=== PATIENT | female | born 1945 | race Caucasian/White ===

== ENCOUNTER 2016-12-20 15:18 | Emergency (ER) | payer MEDICARE, OTHER ==
[~2016-12-20] VITALS: Ht 160 cm; Wt 50.0 kg
[~2016-12-20 15:18] MED LIST: ASPI81 CHEW; ASPI81TA82 PO; DOCU100T9 PO; LACT20SO4 PO; PROT40TA G-TUBE; [UNRECOGNIZED DRUG - CODE] PEG
[2016-12-20 15:24] VITALS: BP 119/68; PULSE 80; RESP 18; TEMP 98.9; O2SAT 97
[2016-12-20 15:30] VITALS: BP 119/68; PULSE 83; RESP 18; O2SAT 96
[2016-12-20] MEDS ORDERED: MORP1SOL3 PO (15:36)
--- NOTE | 2016-12-20 15:38 | PD ---
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 Patient's states that it has been moldy for several days me be a little bit longer. The hospice nurse came to the home today saw it, and said he needed to be replaced. Patient called her primary doctor who she has not seen in a year and was told they couldn't help her. brought her here for lack of any other resources. Patient is currently under hospice care with [facility]. She has a past medical history significant for her, CVA, depression. PFSH Past Medical History Arthritis: No Asthma: No Blood Disorders: No Heart Rhythm Problems: No Cancer: Yes Cardiovascular Problems: No High Cholesterol: Yes Chemotherapy: Yes (2.5 yrs worth BRAIN CA) Chest Pain: No Congestive Heart Failure: No COPD: No Cerebrovascular Accident: Yes Dementia: Yes Diminished Hearing: No Endocrine: No GERD: No Genitourinary: Yes (incontinent) Hiatal Hernia: No Immune Disorder: No Kidney Stones: No Psychiatric: No Reproductive: No Respiratory: No Migraines: No Radiation Therapy: Yes Renal Failure: No Seizures: No Sleep Apnea: No Ulcer: No Menopausal: Yes Past Surgical History Abdominal Surgery: Yes (G-TUBE) Body Medical Devices: unable to assess Cardiac Surgery: No Ear Surgery: No Endocrine Surgery: No Eye Surgery: No Genitourinary Surgery: No Gynecologic Surgery: Yes (Hysterectomy) Hysterectomy: Yes Neurologic Surgery: Yes (Lobo Tumor in 2005) Oral Surgery: No Thoracic Surgery: No Social History Alcohol Use: No Tobacco Use: No (quit 35 yrs ago) Substance Use: No Allergies-Medications (Allergen,Severity, Reaction): Coded Allergies: No Known Allergies (Unverified , 12/20/16) Reported Meds & Prescriptions Reported Meds & Active Scripts Active Reported Morphine Liq (Morphine Sulfate) 10 Mg/5 Ml Liq 5 Mg PO Q4HR PRN Review of Systems ROS Limitations: Poor Historian Except as stated in HPI: all other systems reviewed are Neg Gastrointestinal: Positive: Other (moldy feeding tube.) Physical Exam Narrative GENERAL: Thin, chronically ill-appearing alert elderly female. Resting comfortably in no acute distress. SKIN: Focused skin assessment warm/dry. HEAD: Atraumatic. Normocephalic. EYES: Pupils equal and round. No scleral icterus. No injection or drainage. ENT: No nasal bleeding or discharge. Mucous membranes pink and moist. NECK: Trachea midline. No JVD. CARDIOVASCULAR: Regular rate and rhythm. No murmur appreciated. RESPIRATORY: No accessory muscle use. Clear to auscultation. Breath sounds equal bilaterally. GASTROINTESTINAL: Abdomen soft, non-tender, nondistended. Hepatic and splenic margins not palpable. Positive bowel sounds, G-tube in place, black deposits noted throughout feeding tube, T-sponge around feeding tube insertion site had brown drainage with foul odor. MUSCULOSKELETAL: Upper and lower extremities are contracted. No clubbing. No cyanosis. No edema. NEUROLOGICAL: Awake and alert. PSYCHIATRIC: Appropriate mood and affect; insight and judgment normal. Data Data Last Documented VS Vital Signs Date Time Temp Pulse Resp B/P Pulse Ox O2 Delivery O2 Flow Rate FiO2 12/20/16 15:30 83 18 119/68 96 Room Air 12/20/16 15:24 98.9 Orders Invasive Rad Dept Consult (12/20/16 ) [facility] Medical Decision Making Medical Screen Exam Complete: Yes Emergency Medical Condition: Yes Interpretation(s) Vital Signs Date Time Temp Pulse Resp B/P Pulse Ox O2 Delivery O2 Flow Rate FiO2 12/20/16 15:24 98.9 80 18 119/68 97 Differential Diagnosis Sepsis versus malfunctioning feeding tube versus cellulitis versus other Narrative Course Patient is a 71-year-old female brought in by her for evaluation of a moldy feeding tube. Hospice nurse advised patient's to have it evaluated and changed. Patient has no acute issue otherwise. An appointment has been made with interventional radiology for 8:00 tomorrow morning to have the tube changed. This was discussed with patient's . He was advised to avoid using the feeding tube tonight to avoid instilling moldy fluids into her abdomen. Patient does not need to receive any medications tonight per 's report. He will bring patient to the [facility] to the registration desk at 7:15 tomorrow morning. He verbalized understanding of these instructions. Patient stable for discharge. Diagnosis Primary Impression: Encounter for care related to feeding tube Referrals: Interventional Radiology 7:15 on 12/21/16 go to the [facility] registration desk Patient Instructions: General Instructions Additional Instructions: Return tomorrow morning at 7:15, go to the [facility] to the registration desk. Avoid using feeding tube tonight Return to emergency department for any new or worsening symptoms Med/Other Pt SpecificInfo: No Change to Meds Disposition: 01 DISCHARGE HOME Condition: Stable Apurva Merchant [facility] Dec 20, 2016 15:38
--- NOTE | 2016-12-20 15:46 | PD ---
Data Data Last Documented VS Vital Signs Date Time Temp Pulse Resp B/P Pulse Ox O2 Delivery O2 Flow Rate FiO2 12/20/16 15:30 83 18 119/68 96 Room Air 12/20/16 15:24 98.9 Orders Invasive Rad Dept Consult (12/20/16 ) MDM Supervised Visit with CARLOS: Yes Narrative Course I, Dr. Ochoa, have reviewed the advance practice practioner's documentation and am in agreement, met with the patient face to face, made the diagnosis, and the medical decision making was done by me. *My assessment and Findings: 71-year-old female on hospice for brain cancer and CVA here with a moldy G-tube. Hospice nurse came to evaluate patient today and noticed it. Patient on exam has evidence of black colored mold within the G- tube from the abdominal wall out to the port. The abdominal area is clean dry and intact without erythema. I spoke with interventional radiology who can schedule her for G-tube replacement tomorrow at 8 AM and patient will be discharged with outpatient return for same. Romelia Ochoa MD Dec 20, 2016 15:46
[2016-12-21] MEDS ORDERED: LORA-373 PO (07:50)
[2016-12-21] MEDS ORDERED: ASPI1TAB69 PO (07:51)
[2016-12-21] MEDS ORDERED: SENN1TAB17 PO (07:51)
== END 2016-12-20 16:20 | disposition home or self-care (01) ==
LOC: NEPD 15:18
DX: Z43.1 Encounter for attention to gastrostomy (principal); Z85.841 Personal history of malignant neoplasm of brain; F03.90 Unspecified dementia, unspecified severity, without behavioral disturbance, psychotic disturbance, mood disturbance, and anxiety
CPT/HCPCS: 99282

== ENCOUNTER 2016-12-21 07:27 | Day surgery (SDC) | payer MEDICARE, OTHER ==
[~2016-12-21] VITALS: Ht 165.1 cm; Wt 68.2 kg
[~2016-12-21 07:27] MED LIST changes: -ASPI81 CHEW; -ASPI81TA82 PO; -DOCU100T9 PO; -LACT20SO4 PO; +MORP1SOL3 PO; -PROT40TA G-TUBE; -[UNRECOGNIZED DRUG - CODE] PEG
[2016-12-21 07:37] VITALS: BP 122/54; PULSE 18; RESP 18; TEMP 98.5; O2SAT 92
[2016-12-21] MEDS ORDERED: LORA-373 PO (07:50)
[2016-12-21] MEDS ORDERED: SENN1TAB17 PO (07:51)
[2016-12-21] MEDS ORDERED: ASPI1TAB69 PO (07:51)
[2016-12-21] MEDS ORDERED: SODIUM CHLORIDE 0.9% 1000 ML IV SCH (09:45)
[2016-12-21 09:55] VITALS: BP 126/71; PULSE 74; RESP 18; TEMP 98.1; O2SAT 93
[2016-12-21] MEDS ORDERED: IOHEXOL 350 MG/ML 50 ML BTL (for RAD DIAG) G-TUBE ONE (10:05)
--- NOTE | 2016-12-21 10:28 | PD.RAD ---
Post Procedure Progress Note Pre Procedure Diagnosis: (1) PEG tube malfunction Post Procedure Diagnosis: (1) PEG tube malfunction Procedure Date: Dec 21, 2016 Supervising Radiologist: Armin Marks Proceduralist/Assist: Sheryl Mckoy, RT(R)(CV), Sonia Bertrand RT(R)() Anesthesia: Local Plan of Activity Patient to Unit: ROPU Patient Condition: Fair See PACS Report for procedural detail/treatment Feeding Tube Gastrostomy Replacement Uzbek: 18 Armin Marks MD Dec 21, 2016 10:28
--- NOTE | 2016-12-21 11:19 | RADRPT ---
EXAM DATE/TIME: 12/21/2016 10:25 [facility] COMPARISON: No previous studies available for comparison. INDICATIONS : Patients G tube in need of exchange. MEDICAL HISTORY : 1.CVA 2. Dementia 3. Brain cancer SURGICAL HISTORY : 1. Brain tumor removed 2007 2. Peg tube placement 3. hysterectomy ENCOUNTER: Initial ACUITY: 2 days PAIN SCORE: 0/10 FLUORO TIME: 0.8 minutes IMAGE SERIES: 1 CONTRAST: 10 cc Omnipaque (iohexol) 350 DEVICE(S): 1.) 18 Swazi gastrostomy tube PROCEDURE : 1. Fluoroscopically guided gastrostomy tube exchange. 2. Conscious sedation with continuous EKG and oximetry monitoring. The risks, benefits and alternatives to the procedure were explained and verbal and written consent w as obtained. The site was prepped in sterile fashion. Full sterile technique was used, including ca p, mask, sterile gloves and gown and a large sterile sheet. Hand hygiene and 2% chlorhexidine and/or betadine/alcohol prep was utilized per protocol for cutaneous antisepsis. The skin and subcutaneous tissues were infiltrated with local anesthetic solution. The existing tube was accessed using sterile technique. The tube was removed over a 0.035 wire. A ne w tube was advanced over the wire and positioned into the stomach without difficulty. The balloon wa s inflated with appropriate volume of saline. Injection of positive contrast demonstrates good posit ion of the gastrostomy tube. Conscious sedation was performed with the prescribed dosages and duration as above in the presence of an independent trained radiology nurse to assist in the monitoring of the patient. EKG and oximetry remained stable throughout the procedure. The patient tolerated the procedure well and there were n o complications. The patient was sent to post anesthesia recovery in stable condition. CONCLUSION: Uncomplicated gastrostomy tube exchange as above. Armin Marks MD on December 21, 2016 at 11:17 Board Certified Radiologist. This report was verified electronically.
== END 2016-12-21 11:40 | disposition home or self-care (01) ==
LOC: HROP 07:27 → HRIP 07:29 → HROP 11:40
PROVIDERS: ATTEND Emergency Medicine
DX: K94.23 Gastrostomy malfunction (principal); F03.90 Unspecified dementia, unspecified severity, without behavioral disturbance, psychotic disturbance, mood disturbance, and anxiety; Z85.841 Personal history of malignant neoplasm of brain; Z86.73 Personal history of transient ischemic attack (TIA), and cerebral infarction without residual deficits
CPT/HCPCS: 49452; C1769; Q9967

== ENCOUNTER 2018-02-01 14:14 | Emergency (ER) | payer MEDICARE, OTHER ==
[~2018-02-01 14:14] MED LIST changes: +ASPI1TAB69 PO; +LORA0.5T PO; +SENN1TAB17 PO
[2018-02-01 14:15] VITALS: BP 109/61; PULSE 99; RESP 20; TEMP 99.1; O2SAT 95
--- NOTE | 2018-02-01 15:11 | PD ---
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 states that he tried contacting hospice but got no return phone calls and decided to come to the emergency department for further treatment and evaluation. reports patient has the G-tube is for supplemental feeding as when she does eat she does not eat that much. Patient is on hospice secondary to cancer. Patient is contracted and nonverbal and unable to contribute to H&P. PFSH Past Medical History Arthritis: No Asthma: No Blood Disorders: No Heart Rhythm Problems: No Cancer: Yes (brain cancer) Cardiovascular Problems: No High Cholesterol: Yes Chemotherapy: Yes Chest Pain: No Congestive Heart Failure: No COPD: No Cerebrovascular Accident: Yes Dementia: Yes Diabetes: No Diminished Hearing: No Endocrine: No Gastrointestinal Disorders: Yes (peg tube) GERD: No Genitourinary: Yes (incontinent) Hepatitis: No Hiatal Hernia: No Immune Disorder: No Kidney Stones: No Musculoskeletal: Yes (bed ridden) Neurologic: Yes (cva) Psychiatric: No Reproductive: No Respiratory: No Migraines: No Radiation Therapy: Yes Renal Failure: No Seizures: No Sleep Apnea: No Thyroid Disease: No Ulcer: No Menopausal: Yes Past Surgical History Abdominal Surgery: Yes (G-TUBE) Body Medical Devices: unable to assess Cardiac Surgery: No Ear Surgery: No Endocrine Surgery: No Eye Surgery: No Genitourinary Surgery: No Gynecologic Surgery: Yes (Hysterectomy) Hysterectomy: Yes Neurologic Surgery: Yes (Lobo Tumor in 2005) Oral Surgery: No Thoracic Surgery: No Social History Alcohol Use: No Tobacco Use: No Substance Use: No Allergies-Medications (Allergen,Severity, Reaction): Coded Allergies: No Known Allergies (Unverified , 12/20/16) Reported Meds & Prescriptions Reported Meds & Active Scripts Active Reported Senokot S (Sennosides-Docusate Sodium) 8.6-50 Mg Tab 1 Tab PO DAILY Aspirin 81 Mg Tabdr 81 Mg PO DAILY Lorazepam 0.5 Mg Tab 0.5 Mg PO DAILY PRN Morphine Liq (Morphine Sulfate) 10 Mg/5 Ml Liq 5 Mg PO Q4HR PRN Review of Systems ROS Limitations: Clinical Condition Except as stated in HPI: all other systems reviewed are Neg Physical Exam Exam Limitations: Clinical Condition Narrative GENERAL: Well-developed, well nourished, in no acute distress, and non-ill appearing. SKIN: Focused skin assessment warm and dry. HEAD: Atraumatic. Normocephalic. EYES: Pupils equal and round. EOMI. No scleral icterus. No injection or drainage. ENT: No nasal bleeding or discharge. Mucous membranes pink and moist. NECK: Trachea midline. Supple. No nuclear rigidity. RESPIRATORY: No accessory muscle use. No respiratory distress. GASTROINTESTINAL: Abdomen soft, non-tender, nondistended, and no guarding. Hepatic and splenic margins not palpable. Normal bowel sounds x4. No pulsatile mass. Stoma noted from recent G-tube removal. It is afebrile, without crepitus, and nontender. MUSCULOSKELETAL: No obvious deformities. No clubbing. No cyanosis. No edema. NEUROLOGICAL: Awake. Data Data Last Documented VS Vital Signs Date Time Temp Pulse Resp B/P (MAP) Pulse Ox O2 Delivery O2 Flow Rate FiO2 02/01/18 14:15 20 95 Room Air 02/01/18 14:15 99.1 99 109/61 (77) Orders Orders Diet Progression Instructions (02/01/18 17:43) Vital Signs (Adult) Q15MX2,Q30MX2 (02/01/18 17:43) Wound Care (02/01/18 17:43) Wound Care (02/01/18 17:43) ^ Flush Tube (02/01/18 17:43) ^ Crush Medications (02/01/18 17:43) Notify Dr: Other (02/01/18 17:43) Notify Dr: Temperature (02/01/18 17:43) Discharge Instructions (02/01/18 17:43) Iohexol 350 Inj (Omnipaque 350 Inj) (02/01/18 17:40) Gastrostomy Tube Placement (02/01/18 ) Ed Discharge Order (02/01/18 18:24) MDM Medical Decision Making Medical Screen Exam Complete: Yes Emergency Medical Condition: Yes Differential Diagnosis G-tube removal, G-tube replacement Narrative Course Patient was seen and examined. Discussed patient with Dr. Drew, who saw and evaluated patient as well attempted to replace G-tube that has been brought with him without success. Discussed patient with interventional radiology who is agreeable to reinsert the G-tube. Patient in no obvious distress upon re- evaluation. Any questions/concerns in reference to patient diagnosis/condition discussed and clarified prior to patient's discharge with patient's . Reinforced sheer importance of close follow up with patient's primary physician or primary care clinic. Instructed patient's to return to ED immediately , if symptoms return/worsen. Patient's showed understanding of above instructions. Further instructions and recommendations were detailed in discharge paperwork. Patient left without difficulty out of ED at discharge. Diagnosis Primary Impression: Encounter for care related to feeding tube Patient Instructions: General Instructions Additional Instructions: Follow-up with your primary care physician this week for reevaluation. Return to the emergency department if symptoms get worse. Disposition: 01 DISCHARGE HOME Condition: Stable Mukund Santana February 01, 2018 15:11
[2018-02-01] MEDS ORDERED: IOHEXOL 350 MG/ML 50 ML BTL (for RAD DIAG) G-TUBE ONE (17:40)
--- NOTE | 2018-02-01 17:46 | PD.RAD ---
Post Procedure Progress Note Pre Procedure Diagnosis: (1) PEG tube malfunction Post Procedure Diagnosis: (1) PEG tube malfunction Procedure Date: February 01, 2018 Supervising Radiologist: Miguel Angel Barcenas Estimated blood loss: none Plan of Activity Patient to Unit: Other Patient Condition: Poor Additional Comments: G tube replaced without difficulty Tube verified in good position OK for use See PACS Report for procedural detail/treatment Miguel Angel Barcenas MD February 01, 2018 17:46
--- NOTE | 2018-02-02 17:12 | RADRPT ---
EXAM DATE: 02/01/2018 5:59 PM EDT AGE/SEX: 72 years / Female INDICATIONS: Patient presents with dislodged G-tube in need of replacement. CLINICAL DATA: This is the patient's subsequent encounter. Patient reports that signs and symptoms h ave been present for 1 day and indicates a pain score of Nonresponsive. MEDICAL/SURGICAL HISTORY: Hypercholesterolemia. CVA. Dementia. Brain cancer. Radiation therapy. G-tube placement. Brain tumor removed COMPARISON: [facility] [place], GASTROSTOMY TUBE PLACEMENT, 06/30/2015. . FLUORO TIME (min): 1.28 IMAGE SERIES: 2 CONTRAST (cc): 10cc Omnipaque (iohexol) 350 DEVICE(S): 18 Bruneian gastrostomy tube . . PROCEDURE: 1. Fluoroscopically guided gastrostomy tube placement. 2. Conscious sedation with continuous EKG and oximetry monitoring. The risks, benefits and alternatives to the procedure were explained to a femoral member. Telephone c onsent was obtained. The site was prepped in sterile fashion. Full sterile technique was used, incl uding cap, mask, sterile gloves and gown and a large sterile sheet. Hand hygiene and 2% chlorhexidin e and/or betadine/alcohol prep was utilized per protocol for cutaneous antisepsis. The skin and subc utaneous tissues were infiltrated with local anesthetic solution. The existing tract from the patient's G-tube which had recently become dislodged was easily identifie d. 5 cc of viscous lidocaine was injected through the tract. This was allowed to dwell for approximat krystal 30 minutes. A 0.035 angle Glidewire and 4 Bruneian dilator were advanced through the tract under di rect fluoroscopic visualization. A new 18 Bruneian gastrostomy tube was advanced through the existing t ract without difficulty. The balloon was inflated. A small injection of contrast confirmed placement of the tube into the stomach. CONCLUSION: 1. Uncomplicated gastrostomy tube placement through an existing tract as above. Electronically signed by: Miguel Angel Barcenas MD 02/02/2018 5:11 PM EDT
== END 2018-02-01 19:45 | disposition home or self-care (01) ==
LOC: NEPE 14:14
DX: K94.23 Gastrostomy malfunction (principal)
CPT/HCPCS: 49440; 99284; C1769; C1894; Q9967